=== PATIENT | male | born 1960 | race Caucasian/White ===

== ENCOUNTER 2024-04-13 09:10 | Emergency (ER) | payer OTHER, SELFPAY ==
[2024-04-13 09:13] VITALS: BP 136/90
--- NOTE | 2024-04-13 09:40 | ED.GENMED ---
History of Present Illness
General
Chief Complaint: Back Pain
Source: patient
Exam Limitations: none
Time Seen by Provider: 04/13/24 09:18
Nursing documentation reviewed up to this point in time: agreed with
Travel History
Have you had any contact with someone who has COVID-19?: No
Do you have any symptoms of coronavirus? Fever > 100 degrees, chills, cough, shortness of breath, sore throat, loss of taste or smell, muscle aches, or headache?: No
History of Present Illness
History of Present Illness:
Patient is a 64 year old male with history HTN, CVA presenting for evaluation of lower back pain. Patient states that he was getting out of the car 8 days ago when he felt a strain in his right lower back. Symptoms seemed to be improving over the
course of last week until he noticed acute worsening last Monday. Patient describes the back as a squeezing/twisting pain across his entire lower back, much worse with movement. Patient denies any numbness/tingling lower extremities, weakness
lower extremities. Patient denies any fever, chills, urinary symptoms, bowel/bladder incontinence.
Patient was seen at his PCPs office yesterday where they felt that he likely had a muscle strain of his lower back. They started him on a Medrol Dosepak and prescribed Flexeril.
Patient denies any history of IV drug use.
Patient does have a history of muscle strains in the past, although none that have been severe.
Past History
Past History
ED Past Medical History: HTN
ED Past Surgical History: Other (hernia repair)
Social History
Tobacco: Non-smoker
Personal:
Living: with family
Employment: Employed (desk work)
Review of Systems
Review of Systems
Allergies reviewed?: Yes
All Other Systems: ROS reviewed and negative except as documented in HPI and ROS
Phy Exam
Physical Exam
Physical Exam:
Vitals: Patient's vital signs are stable, afebrile
General: Patient is well appearing, no acute distress
Skin: Warm and dry, no rashes or lesions
Head: Normocephalic, atraumatic
Eyes: Sclera nonicteric. EOMs intact. No nystagmus. Pupils equal round and reactive to light bilaterally.
Throat: Protecting airway. Uvula midline.
Neck: Normal ROM, no cervical spine tenderness, no meningismus
Cardiac: Regular rate and rhythm, no murmurs.
Pulm: Normal respiratory effort, no wheezes, rales, rhonchi heard on exam.
Abdomen: Soft. No abdominal tenderness. Nondistended.
Back: Mild tenderness of lumbar paraspinal muscles bilaterally. No midline spinal tenderness. No erythema or rashes. No CVA tenderness.
Extremities: No evidence of cyanosis or edema. Strength 5/5 in upper and lower extremities
Neuro: AAOx3. CN II-XII intact. No focal neurologic deficits. Sensation fully intact.
Psychiatric: Normal affect.
Course
Orders/Labs/Results
Orders:
Orders
04/13/24 09:51
Ibuprofen [Motrin] 400 mg PO NOW STA
Tramadol HCl [Ultram] 50 mg PO NOW STA
Lumbar Spine, 2 or 3 View [CR Lumbar Spine 2 Or 3 Views] Urgent
Comment:
Reason For Exam: lower back pain
Vital Signs
Initial and Last Documented VS:
Initial Vital Signs
Temp Pulse Resp BP Pulse Ox
98.6 F 96 20 136/90 99
04/13/24 09:13 04/13/24 09:13 04/13/24 09:13 04/13/24 09:13 04/13/24 09:13
Last Documented Vital Signs
Temp Pulse Resp BP Pulse Ox
98.6 F 63 18 137/78 100
04/13/24 09:13 04/13/24 11:24 04/13/24 11:24 04/13/24 11:24 04/13/24 11:24
MDM/Problems Addressed
Differential Diagnosis Includes:
Not limited to: Lumbar muscle strain, muscle spasm, sciatica, discitis, compression fracture, kidney stone
MDM/Problems Addressed:
Patient is 60 old male presenting for evaluation of persistent lower back pain over the past week. There was an inciting event. Denies systemic symptoms. Vitals stable. Patient is afebrile. Physical exam as above. Nontoxic-appearing. No
midline spinal tenderness. Negative straight leg raise bilaterally. No focal neurologic findings on exam. Patient was started on Medrol Dosepak and Flexeril yesterday by his PCP. History and exam most consistent with lumbar strain/spasm. Given
severity and persistence of symptoms�will check lumbar spine x-ray. Will try Motrin and tramadol. Will reassess. Patient may require MRI outpatient if symptoms persist.
10:40AM: In to reassess patient at bedside. Patient does appear more comfortable. He was able to successfully ambulate out of bed and walk around room independently.
Xray shows no evidence of acute fracture. Mild degenerative disc disease at level L3-L4. Findings consistent with constipation noted.
Patient did have lower back spasm while prepping for discharge. I still feel he is stable for discharge and suspect muscle strain/spasm that will improve with rest, continuation of muscle relaxers/pain medication. He is more comfortable since
arriving to emergency department. Will discharge with tramadol. Recommend lidocaine patch, warm compress to area. He should continue other medications as prescribed. Discussed interaction between tramadol/Flexeril�should separate by at least a
few hours. Return precautions discussed at length. Patient comfortable with plan. All questions answered
Chronic conditions affecting care:
Hypertension
Acute Exacerbation and/or Progression of Chronic Illness:
N/A
*Radiology
Radiology exam reviewed: preliminary read by ED provider and radiology read reviewed
*Pulse Oximetry
Patient hypoxic: no
*EKG
Interpreted by ED Provider?: NA
*Research Archaeologist Interpretation
Rate: Research Archaeologist- N/A
*Critical Care Note
Total Time (30-74mins, 75-104mins- exclusive of procedures): Not Applicable
ED Attending Note
-
Portions of this chart may have been created with voice recognition software.� Occasional wrong word or��sound alike� substitutions may have occurred due to the inherent limitations of voice recognition software.
Discharge Plan
Departure
Patient Disposition: Home (Routine Discharge)
Date of Disposition: 04/13/24
Time of Disposition: 11:46
Patient with high blood pressure during this ER visit?: No
Condition: Good
Covid-19: Not Applicable
Discharge Problem:
Lower back pain
Instructions: Low Back Pain (DC), Back Muscle Strain (DC)
Prescriptions:
New
tramadol 50 mg tablet
50 mg PO Q6H PRN (Reason: Pain) Qty: 10 0RF
No Action
sildenafil [Viagra] 100 MG tablet
100 mg PO DAILYPRN PRN (Reason: sexual activity)
cholecalciferol (vitamin D3) 2,000 UNITS tablet
2,000 units PO DAILY
multivitamin with folic acid [Tab-A-Eddie] 1 TABLET tablet
1 tab PO DAILY
atorvastatin 40 MG tablet
40 mg PO QPM Qty: 30 0RF
clopidogrel 75 MG tablet
75 mg PO DAILY Qty: 19 0RF
aspirin 81 MG tablet,chewable
81 mg PO DAILY Qty: 30 0RF
lisinopril 5 MG tablet
5 mg PO DAILY Qty: 30 0RF
Referrals:
Raúl Trejo DO [Family Provider] - Follow up in 5-7 days
Activity Restrictions/Additional Instructions:
-Return to the emergency department with any intractable pain, weakness/numbness in lower extremities, bowel/bladder incontinence, shortness of breath/difficulty breathing, high fevers, worsening in current symptoms, or any other concerns
-A prescription has been sent for tramadol as needed for severe pain. This may cause drowsiness and should not take prior to driving. You can also take Motrin 400 mg as needed for discomfort.
-You can continue to take your other medications as prescribed. You should not take both tramadol and cyclobenzaprine together with can cause drowsiness. by few hours. You can try lidocaine patches [id number], as well. Use a warm
compress as needed
-As discussed that she should follow-up with your primary care provider within 5 days to ensure symptoms are improving. If persistent/worsening�you may require an MRI for further evaluation
Interventions
Interventions:
*Risk Screen - Suicide Last Done: 04/13/24 09:13
*General Assessment Last Done: 04/13/24 09:13
*Neglect/Abuse Screening Last Done: 04/13/24 09:13
*ED COVID-19 Vaccine History Last Done: 04/13/24 11:55
*Nursing Disposition Last Done: 04/13/24 11:55
ED-Musculoskeletal Assessment Last Done: 04/13/24 09:41
Discharge Date and Time
Discharge Date/Time: 04/13/24 11:55
Print Language: BULGARIAN
[2024-04-13] MEDS: MOTRIN 400 MG PO (10:17)
[2024-04-13] MEDS: ULTRAM 50 MG PO (10:18)
[2024-04-13 11:24] VITALS: BP 137/78; BMI 24.8
== END 2024-04-13 11:55 | disposition home or self-care (01) ==
LOC: EMR 09:10
PROVIDERS: EMERGENCY PHYSICIAN Emergency Medicine; FAMILY PHYSICIAN Family Medicine
DX: M54.50 Low back pain, unspecified (principal); I10 Essential (primary) hypertension
CPT/HCPCS: 99283; 72100

== ENCOUNTER → 2024-10-30 14:16 | Outpatient (REF) | payer OTHER, MEDICARE, SELFPAY | LOC: PAVMRI 14:16 | PROVIDERS: ATTENDING PHYSICIAN Physician Assistant; FAMILY PHYSICIAN Family Medicine | DX: R42 Dizziness and giddiness (principal) | CPT/HCPCS: 70553; A9575 ==